=== PATIENT | female | born 1965 | race Caucasian/White ===

== ENCOUNTER → 2021-01-20 | Outpatient (CLI) | payer BC ==
[2021-01-20 10:10] LABS: HEMOGLOBIN 14.7 gm/dl (12.3-15.3); RED BLOOD COUNT 4.61 M/UL (4.00-5.10)
[2021-01-20 10:36] LABS: BUN/CREATININE RATIO 19 (0-10)
== END ==
LOC: LAB 09:46
PROVIDERS: Nurse Practitioner Family
DX: L71.0 Perioral dermatitis (principal); E78.5 Hyperlipidemia, unspecified; E55.9 Vitamin D deficiency, unspecified
CPT/HCPCS: 36415; 80053; 80061; 81001; 84439; 84443; 85025